=== PATIENT | male | born 1980 | race Hispanic/Latino ===

== ENCOUNTER 2016-11-30 20:10 | Emergency (ER) | payer OTHER ==
[2016-11-30 21:50] LABS: Basophils % (Auto) 0.8 % (0.0-1.8); Eosinophils % (Auto) 0.9 % (0.0-4.3); Hematocrit 51.6 % (35.5-45.6); Hemoglobin 18.2 gm/dl (11.8-15.2); Mean Corpuscular HGB Conc 35 % (32-34); Mean Corpuscular Hemoglobin 34 pg (28-32); Mean Corpuscular Volume 96 fl (84-94); Platelet Count 353 K/mm3 (140-440); Red Blood Count 5.37 M/mm3 (3.65-5.03); Red Cell Distribution Width 14.9 % (13.2-15.2); White Blood Count 9.2 K/mm3 (4.5-11.0)
[2016-11-30 21:55] LABS: Anion Gap 26 mmol/L; BUN/Creatinine Ratio 8; Blood Urea Nitrogen 8 mg/dL (9-20); Calcium 9.4 mg/dL (8.4-10.2); Carbon Dioxide 20 mmol/L (22-30); Chloride 99.7 mmol/L (98-107); Glucose 111 mg/dL (75-100); Potassium 4.5 mmol/L (3.6-5.0); Sodium 141 mmol/L (137-145)
[2016-11-30 22:14] LABS: Urine Drugs of Abuse Note Disclamer
[2016-11-30 22:23] LABS: Bilirubin,Urine NEG (Negative); Blood,Urine SM (Negative); Ketones,Urine NEG (Negative); Leukocyte Esterase,Urine NEG (Negative); Mucus,Urine 1+ /HPF; Nitrite,Urine NEG (Negative); RBC,Urine < 1.0 /HPF (0.0-6.0); Urobilinogen,Urine < 2.0 mg/dL (<2.0)
[2016-12-01] MEDS ORDERED: ATIVAN IV ONE (00:05)
[2016-12-01] MEDS ORDERED: NACL 0.9% 1000 ML 2,000 ML IV ONE (00:05)
--- NOTE | 2016-12-01 00:06 | Emergency Department Report ---
ED General Adult HPI - General Chief complaint: Psych Stated complaint: MEDICAL CLEAR. Time Seen by Provider: 11/30/16 23:59 Source: patient, RN notes reviewed Mode of arrival: Ambulatory Limitations: No Limitations - History of Present Illness Initial comments: This is a 36-year-old male who was previously unknown to this provider. The patient has no chronic medical conditions with the exception of hypertension and possible high cholesterol. He presents to the ER for medical clearance after alcohol consumption. He does not have any headache, neck pain, chest pain , abdominal pain or shortness of breath. He is not homicidal or suicidal, he denies coingestions, he does work in the , and he declines any evaluation from a counselor or mental health. He has no complaints physically at this time, and wants to go home. -: Gradual Severity scale (0 -10): 0 Consistency: constant Improves with: none Worsens with: none Associated Symptoms: denies other symptoms - Related Data Previous Rx's Medication Instructions Recorded Last Taken Type Losartan/Hydrochlorothiazide 1 tab PO QDAY #30 tablet 12/01/16 Unknown Rx [Hyzaar 100-25 TAB] Allergies Allergy/AdvReac Type Severity Reaction Status Date / Time codeine Allergy Shortness Verified 11/30/16 21:04 of Breath ED Review of Systems ROS: Stated complaint: MEDICAL CLEAR. Other details as noted in HPI Constitutional: denies: fever, malaise Eyes: denies: vision change ENT: denies: epistaxis Respiratory: denies: cough Cardiovascular: denies: chest pain Genitourinary: denies: dysuria Musculoskeletal: denies: back pain Skin: denies: lesions Neurological: denies: weakness Psychiatric: denies: homicidal thoughts, suicidal thoughts ED Past Medical Hx - Past Medical History Previous Medical History?: Yes Hx Hypertension: Yes Additional medical history: HIGH CHOLESTEROL - Surgical History Past Surgical History?: Yes Additional Surgical History: LEFT KNEE 1998 - Social History Smoking Status: Light Tobacco Smoker Substance Use Type: Alcohol - Medications Home Medications: Home Medications Medication Instructions Recorded Confirmed Last Taken Type Losartan/Hydrochlorothiazide 1 tab PO QDAY #30 tablet 12/01/16 Unknown Rx [Hyzaar 100-25 TAB] ED Physical Exam - General Limitations: No Limitations General appearance: alert, in no apparent distress - Head Head exam: Present: atraumatic, normocephalic - Eye Eye exam: Present: normal appearance, EOMI. Absent: nystagmus - ENT ENT exam: Present: normal exam, normal orophraynx, mucous membranes moist, normal external ear exam - Neck Neck exam: Present: normal inspection, full ROM. Absent: tenderness, meningismus - Respiratory Respiratory exam: Present: normal lung sounds bilaterally. Absent: respiratory distress, wheezes, rales, rhonchi, stridor, chest wall tenderness, accessory muscle use, decreased breath sounds, prolonged expiratory - Cardiovascular Cardiovascular Exam: Present: normal rhythm, tachycardia, normal heart sounds. Absent: bradycardia, systolic murmur, diastolic murmur, rubs, gallop - GI/Abdominal GI/Abdominal exam: Present: soft, normal bowel sounds. Absent: distended, tenderness, guarding, rebound, rigid, pulsatile mass - Rectal Rectal exam: Present: deferred - Extremities Exam Extremities exam: Present: normal inspection, full ROM, normal capillary refill. Absent: tenderness, pedal edema, joint swelling, calf tenderness - Back Exam Back exam: Present: normal inspection, full ROM. Absent: tenderness, CVA tenderness (R), CVA tenderness (L), muscle spasm, paraspinal tenderness, vertebral tenderness - Neurological Exam Neurological exam: Present: alert, oriented X3, normal gait, other (Extraocular movements intact. Tongue midline. No facial droop. Facial sensation intact to light touch in the V1, V2, V3 distribution bilaterally. 5 and 5 strength in 4 extremities.. Sensation is intact to light touch in 4 extremities.). Absent : motor sensory deficit - Psychiatric Psychiatric exam: Present: anxious. Absent: homicidal ideation, suicidal ideation - Skin Skin exam: Present: warm, dry, intact, normal color. Absent: rash ED Course Vital Signs 11/30/16 11/30/16 12/01/16 21:05 23:35 00:36 Temperature 98.6 F 98.6 F 98.3 F Pulse Rate 146 H 124 H 116 H Respiratory 20 18 16 Rate Blood Pressure 171/121 Blood Pressure 180/122 149/105 [Right] O2 Sat by Pulse 95 98 98 Oximetry 12/01/16 03:00 Temperature Pulse Rate 98 H Respiratory Rate Blood Pressure Blood Pressure 136/96 [Right] O2 Sat by Pulse Oximetry - Reevaluation(s) Reevaluation #1: 12/01/16 01:30 Patient feels more comfortable. Tachycardia mostly resolved, heart rate now 102 bpm, requests a refill on his blood pressure medication, this has been done , he will be discharged in custody with an adult supervising person. ED Medical Decision Making - Lab Data Result diagrams: 11/30/16 21:23 11/30/16 21:23 Vital Signs 11/30/16 11/30/16 21:05 23:35 Temperature 98.6 F 98.6 F Pulse Rate 146 H 124 H Respiratory 20 18 Rate Blood Pressure 171/121 Blood Pressure 180/122 [Right] O2 Sat by Pulse 95 98 Oximetry Lab Results 11/30/16 11/30/16 11/30/16 Range/Units 21:23 21:23 21:23 WBC 9.2 (4.5-11.0) K/mm3 RBC 5.37 H (3.65-5.03) M/mm3 Hgb 18.2 H (11.8-15.2) gm/dl Hct 51.6 H (35.5-45.6) % MCV 96 H (84-94) fl MCH 34 H (28-32) pg MCHC 35 H (32-34) % RDW 14.9 (13.2-15.2) % Plt Count 353 (140-440) K/mm3 Lymph % (Auto) 34.0 (13.4-35.0) % [place] % (Auto) 9.1 H (0.0-7.3) % Eos % (Auto) 0.9 (0.0-4.3) % Baso % (Auto) 0.8 (0.0-1.8) % Lymph # 3.1 (1.2-5.4) K/mm3 [place] # 0.8 (0.0-0.8) K/mm3 Eos # 0.1 (0.0-0.4) K/mm3 Baso # 0.1 (0.0-0.1) K/mm3 Seg Neutrophils % 55.2 (40.0-70.0) % Seg Neutrophils # 5.1 (1.8-7.7) K/mm3 Sodium 141 (137-145) mmol/L Potassium 4.5 (3.6-5.0) mmol/L Chloride 99.7 (98-107) mmol/L Carbon Dioxide 20 L (22-30) mmol/L Anion Gap 26 mmol/L BUN 8 L (9-20) mg/dL Creatinine 1.0 (0.8-1.5) mg/dL Estimated GFR > 60 ml/min BUN/Creatinine Ratio 8 % Glucose 111 H (75-100) mg/dL Calcium 9.4 (8.4-10.2) mg/dL Urine Color (Yellow) Urine Turbidity (Clear) Urine pH (5.0-7.0) Ur Specific [place] (1.003-1.030) Urine Protein (Negative) mg/dL Urine Glucose (UA) (Negative) mg/dL Urine Ketones (Negative) mg/dL Urine Blood (Negative) Urine Nitrite (Negative) Urine Bilirubin (Negative) Urine Urobilinogen (<2.0) mg/dL Ur Leukocyte Esterase (Negative) Urine WBC (Auto) (0.0-6.0) /HPF Urine RBC (Auto) (0.0-6.0) /HPF U Epithel Cells (Auto) (0-13.0) /HPF Hyaline Casts /LPF Urine Mucus /HPF Urine Opiates Screen Urine Methadone Screen Ur Barbiturates Screen Ur Phencyclidine Scrn Ur Amphetamines Screen U Benzodiazepines Scrn Urine Cocaine Screen U Marijuana (THC) Screen Drugs of Abuse Note Plasma/Serum Alcohol 0.28 H (0-0.07) gm% 11/30/16 11/30/16 Range/Units 21:53 21:53 WBC (4.5-11.0) K/mm3 RBC (3.65-5.03) M/mm3 Hgb (11.8-15.2) gm/dl Hct (35.5-45.6) % MCV (84-94) fl MCH (28-32) pg MCHC (32-34) % RDW (13.2-15.2) % Plt Count (140-440) K/mm3 Lymph % (Auto) (13.4-35.0) % [place] % (Auto) (0.0-7.3) % Eos % (Auto) (0.0-4.3) % Baso % (Auto) (0.0-1.8) % Lymph # (1.2-5.4) K/mm3 [place] # (0.0-0.8) K/mm3 Eos # (0.0-0.4) K/mm3 Baso # (0.0-0.1) K/mm3 Seg Neutrophils % (40.0-70.0) % Seg Neutrophils # (1.8-7.7) K/mm3 Sodium (137-145) mmol/L Potassium (3.6-5.0) mmol/L Chloride (98-107) mmol/L Carbon Dioxide (22-30) mmol/L Anion Gap mmol/L BUN (9-20) mg/dL Creatinine (0.8-1.5) mg/dL Estimated GFR ml/min BUN/Creatinine Ratio % Glucose (75-100) mg/dL Calcium (8.4-10.2) mg/dL Urine Color Yellow (Yellow) Urine Turbidity Clear (Clear) Urine pH 5.0 (5.0-7.0) Ur Specific [place] 1.015 (1.003-1.030) Urine Protein 100 mg/dl (Negative) mg/dL Urine Glucose (UA) 50 (Negative) mg/dL Urine Ketones Neg (Negative) mg/dL Urine Blood Sm (Negative) Urine Nitrite Neg (Negative) Urine Bilirubin Neg (Negative) Urine Urobilinogen < 2.0 (<2.0) mg/dL Ur Leukocyte Esterase Neg (Negative) Urine WBC (Auto) 8.0 H (0.0-6.0) /HPF Urine RBC (Auto) < 1.0 (0.0-6.0) /HPF U Epithel Cells (Auto) 1.0 (0-13.0) /HPF Hyaline Casts 17 /LPF Urine Mucus 1+ /HPF Urine Opiates Screen Presumptive negative Urine Methadone Screen Presumptive negative Ur Barbiturates Screen Presumptive negative Ur Phencyclidine Scrn Presumptive negative Ur Amphetamines Screen Presumptive negative U Benzodiazepines Scrn Presumptive negative Urine Cocaine Screen Presumptive negative U Marijuana (THC) Screen Presumptive negative Drugs of Abuse Note Disclamer Plasma/Serum Alcohol (0-0.07) gm% - Medical Decision Making Differential diagnosis: Alcohol intoxication, alcohol dependence, medical clearance Assessment and plan: 36-year-old male with clinical alcohol intoxication with no other complaints. He is afebrile, with reassuring vital signs with the exception of tachycardia, walks with a steady gait, has a GCS of 15, with an NIH score of 0, there is no trauma, he does not meet criteria for 1013, he declines an evaluation from a crisis counselor. He may be somewhat hemoconcentrated, therefore he'll be given some IV fluids and Ativan. He is accompanied by a officer from the local [employer], therefore he can be discharged in his office's custody once his tachycardia has resolved. The patient was instructed to moderate consumption of alcohol, and he will be given outpatient resources. Assuming his tachycardia resolves, there is no immediate medical contraindication to patient resuming his duties. Critical care attestation.: If time is entered above; I have spent that time in minutes in the direct care of this critically ill patient, excluding procedure time. ED Disposition Clinical Impression: Alcohol dependence Disposition: DC-01 TO HOME OR SELFCARE Is pt being admited?: No Does the pt Need Aspirin: No Condition: Stable Instructions: Abuse of Alcohol (ED), At-Risk Alcohol Use (ED) Additional Instructions: Make certain to moderate consumption of alcohol. FPC complications of alcohol consumption include heart disease, liver disease, stroke, disability, loss of quality of life. Follow up with a primary care doctor within the next month. Return to the ER right away with fevers, chills, chest pain, shortness of breath, homicidality, suicidality, intractable nausea or vomiting, inability to tolerate liquid feeds. Please note that blood pressure was elevated, this should be followed up by primary care doctor as recommended. Long-term complications of hypertension includes stroke, heart attack, disability, , paralysis, loss of quality of life. Take blood pressure medication as directed. Prescriptions: Losartan/Hydrochlorothiazide [Hyzaar 100-25 TAB] 1 tab PO QDAY #30 tablet Referrals: PRIMARY CARE, [Primary Care Provider] - 3-5 Days [facility] [Outside] - 3-5 Days
[2016-12-01 03:45] VITALS: BP 136/96
== END 2016-12-01 03:00 | disposition home or self-care (01) ==
LOC: ED 20:10
DX: F10.229 Alcohol dependence with intoxication, unspecified (principal); I10 Essential (primary) hypertension; F17.200 Nicotine dependence, unspecified, uncomplicated
CPT/HCPCS: 36415; 80048; 80307; 81001; 85025; 96361; 96374; 99283; G0480; J2060; J7030; 80320